=== PATIENT | male | born 1975 | race Caucasian/White ===

== ENCOUNTER 2018-02-04 14:34 | Outpatient (CLI) | payer MEDICAID ==
[~2018-02-04] VITALS: Ht 180.3 cm; Wt 82.6 kg
[2018-02-04 15:10] VITALS: BP 114/68
[2018-02-04] MEDS ORDERED: MULTIVITAMINS1 EAC2 ORAL (15:22)
[2018-02-04] MEDS ORDERED: CO Q-10100 M1 PO (15:22)
[2018-02-04] MEDS ORDERED: MAGNESIUM250 M3 PO (15:22)
[2018-02-04] MEDS ORDERED: GLUCOSAMINE1000 M1 PO (15:22)
[2018-02-04] MEDS ORDERED: N-ACETYL-L-CYS600 MG PO (15:22)
--- NOTE | 2018-02-05 15:01 | GI Initial Consult Note ---
History of Present Illness General Date patient seen: Feb 04, 2018 Time patient seen: 14:56 Referring physician: O Reason for Consultation: Abdominal Bloating Present Illness HPI 42 year old male who presents today with c/o of abdominal bloating since June of 2017. Denies any abdominal pain, N/V/D or constipation. 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 Patient has no other significant history. Denies any unintentional weight loss or changes in dietary habits. No signs of abuse or neglect. Patient is not fall risk. No history of endoscopy / colonoscopy. Home Meds Reported Medications Acetylcysteine (F-SQMREW-Z-CYSTEINE) 600 Mg Capsule, PO DAILY, CAP 02/04/18 Multivitamins* (MULTIVITAMINS*) 1 Each Tablet, 1 TAB ORAL DAILY, TAB 0 Refills 02/04/18 Ubidecarenone (CO Q-10) 100 Mg Capsule, PO, CAP 02/04/18 Magnesium (MAGNESIUM) 250 Mg Tablet, 450 MG PO DAILY, TAB 02/04/18 Glucosamine Sulfate 2KCL (GLUCOSAMINE) 1,000 Mg Tablet, 1500 MG PO DAILY, TAB 02/04/18 Med list reviewed/reconciled: Yes Allergies: Coded Allergies: CORTICOSTEROIDS (GLUCOCORTICOIDS) (Verified Allergy, Intermediate, 02/04/18 ) NSAIDS (NON-STEROIDAL ANTI-INFLAMMA (Verified Allergy, Intermediate, ) Patient History History Provided By: Patient, Medical Record [facility] Narrative Denies any medical history Past Surgical History: none Pertinent Family History: none Social History: Reports: smoking - 10 cigarettes a day Review of Systems All Other Systems: negative except mentioned in HPI Physical Exam Vital Signs Date Time Temp Pulse Resp B/P (MAP) Pulse Ox O2 Delivery O2 Flow Rate FiO2 02/04/18 15:10 98.2 83 16 114/68 96 98.2 Sp02 EP Interpretation: reviewed, normal General Appearance: well appearing, no apparent distress, alert Head: normocephalic EENT: PERRL/EOMI, normal ENT inspection Neck: supple Respiratory: normal breath sounds, no respiratory distress Cardiovascular: normal rate Gastrointestinal: normal inspection, non tender, soft, normal bowel sounds, non -distended Rectal: deferred Genitourinary: deferred Musculoskeletal: normal inspection, back normal Neurologic: normal inspection, alert, oriented x3, responsive Psychiatric: normal inspection, judgement/insight normal, memory normal Skin: normal inspection, normal color, no rash, warm/dry, palpation normal, well hydrated Lymphatic: normal inspection, no adenopathy GI: Plan Problems: (1) Abdominal bloating Plan Hx of spinal fluid leak 2017 Hives to contrast abdominal gas/bloating Trial of VSL #3 RTC x [address] Giron. Thank you for this patient referral. The patient was seen and examined at bedside and all new and available data was reviewed in the patients chart. I agree with the above findings, impression and plan. (Patient seen earlier today. Signature stamp does not reflect patient encounter time.). - MD [facility] Feb 05, 2018 15:01
== END 2018-02-04 15:04 | disposition home or self-care (01) ==
LOC: PAN 14:34
DX: R14.0 Abdominal distension (gaseous) (principal)
CPT/HCPCS: 99201

== ENCOUNTER 2018-04-19 13:20 | Outpatient (CLI) | payer MEDICAID ==
[~2018-04-19 13:20] MED LIST: CO Q-10100 M1 PO; GLUCOSAMINE1000 M1 PO; MAGNESIUM250 M3 PO; MULTIVITAMINS1 EAC2 ORAL; N-ACETYL-L-CYS600 MG PO
--- NOTE | 2018-04-19 14:23 | GI Progress Note ---
Assessment/Plan Problems: (1) Diarrhea ICD Codes: R19.7 - Diarrhea, unspecified SNOMED: 34581470 (2) Celiac disease ICD Codes: K90.0 - Celiac disease SNOMED: 656523542 (3) Abdominal bloating ICD Codes: R14.0 - Abdominal distension (gaseous) SNOMED: 261864498 Status: stable Status Narrative Seen with Dr. Giron. Assessment/Plan Celiac Panel FODMAP Diet increase VSL dosage to 750 RTC x1 month The patient was seen and examined at bedside and all new and available data was reviewed in the patients chart. I agree with the above findings, impression and plan. (Patient seen earlier today. Signature stamp does not reflect patient encounter time.). - Johnnie Giron MD Subjective Subjective still has abdominal bloating after eating occasional diarrhea history of Gadolinium deposit disease Objective T 98.3 BP 108/73 P 66 95 RA Denies any weight loss. General Appearance: WD/WN, no apparent distress, alert Cardiovascular: normal rate Respiratory/Chest: normal breath sounds, no respiratory distress Abdominal Exam: normal bowel sounds, non tender, soft Extremities: normal range of motion, non-tender Nina Griffin NP Apr 19, 2018 14:23
[2018-04-19 15:19] VITALS: BP 108/73
== END 2018-04-19 13:50 | disposition home or self-care (01) ==
LOC: PAN 13:20
DX: R19.7 Diarrhea, unspecified (principal); K90.0 Celiac disease; R14.0 Abdominal distension (gaseous)
CPT/HCPCS: 99212

== ENCOUNTER 2018-09-08 14:13 | Outpatient (CLI) | payer MEDICAID ==
--- NOTE | 2018-09-08 15:03 | General Progress Note ---
Assessment/Plan Problem List: (1) Diarrhea ICD Codes: R19.7 - Diarrhea, unspecified SNOMED: 34695678 (2) Abdominal bloating ICD Codes: R14.0 - Abdominal distension (gaseous) SNOMED: 557816279 Diagnoses Results of Pharmacotherapy: stool for rodrigo stool ubiome breath test Subjective ROS Limited/Unobtainable: Yes Allergies: Coded Allergies: CORTICOSTEROIDS (GLUCOCORTICOIDS) (Verified Allergy, Intermediate, 02/04/18 ) NSAIDS (NON-STEROIDAL ANTI-INFLAMMA (Verified Allergy, Intermediate, ) Objective General Appearance: alert EENT: PERRL/EOMI Neck: supple Cardiovascular: normal rate Respiratory/Chest: lungs clear Abdomen: normal bowel sounds, non tender, soft Extremities: non-tender Johnnie Giron MD Sep 08, 2018 15:03
[2018-09-08] MEDS ORDERED: GRAPE SEED EXTR50 MG PO (15:52)
[2018-09-08] MEDS ORDERED: BORON1 GM MC (15:52)
[2018-09-08 15:53] VITALS: BP 95/65
== END 2018-09-08 16:19 | disposition home or self-care (01) ==
LOC: PAN 14:13
DX: R19.7 Diarrhea, unspecified (principal); R14.0 Abdominal distension (gaseous); Z88.6 Allergy status to analgesic agent
CPT/HCPCS: 99213